=== PATIENT | female | born 1990 | race Caucasian/White ===

== ENCOUNTER 2020-11-23 07:03 | Outpatient (RCR) | payer OTHER ==
[~2020-11-23] VITALS: Ht 170.2 cm; Wt 77.3 kg
[~2020-11-23 07:03] MED LIST: ACHYD1T PO; BIOT1TAB2 PO; DCS100C PO; FOLI0.4T2 PO; IBP800T PO; PREN-115 PO
[2020-11-23] MEDS ORDERED: SERT-413 PO (14:16)
[2020-11-23] MEDS ORDERED: bcp PO (14:16)
[2020-11-23] MEDS ORDERED: MULT-141 PO (14:16)
== END 2020-11-24 10:01 | disposition home or self-care (01) ==
LOC: PREOP 07:03
PROVIDERS: ATTEND Otolaryngology Otolaryngology/Facial Plastic Surgery
DX: Z01.818 Encounter for other preprocedural examination (principal)

== ENCOUNTER 2020-12-01 07:09 | Day surgery (SDC) | payer OTHER ==
[~2020-12-01] VITALS: Ht 170.2 cm; Wt 77.3 kg
[2020-12-01] VITALS (10 sets, daily range): BP systolic 107–121; BP diastolic 63–82
[~2020-12-01 07:09] MED LIST changes: +MULT-141 PO; +SERT-413 PO; +bcp PO
[2020-12-01] MEDS ORDERED: proPOfol 200 MG/20 ML (DIPRIVAN) VIAL IV ONE ×3 (07:43→10:37)
[2020-12-01] MEDS ORDERED: SEVOFLURANE (ULTANE) 15 ML INHAL SOLN ONE ×11 (07:43→11:44)
[2020-12-01] MEDS ORDERED: LIDOCAINE PF 2% 5 ML (XYLOCAINE) VIAL ONE (07:43)
[2020-12-01] MEDS ORDERED: fentaNYL INJECTION 100 MCG/2 ML AMP ONE ×2 (07:44→09:22)
[2020-12-01] MEDS ORDERED: MIDAZOLAM 2 MG/2 ML (VERSED) VIAL ONE (07:44)
[2020-12-01] MEDS: LACTATED RINGERS 1,000 ML IV SCH ×2 (07:45→09:47)
[2020-12-01] MEDS ORDERED: LIDOCAINE/EPI 1%-1:100,000 (XYLOCAINE) 50 ML ONE (07:58)
[2020-12-01] MEDS ORDERED: BSS 15 ML ONE (07:58)
[2020-12-01] MEDS ORDERED: MUPIROCIN 2% OINT 22 GM (BACTROBAN) TUBE ONE (07:58)
--- NOTE | 2020-12-01 08:16 | Progress Note-Pre Operative ---
Pre-Operative Progress Note H&P Reviewed The H&P was reviewed, patient examined and no changes noted. Date Seen by Provider: Dec 01, 2020 Time Seen by Provider: 07:45 Date H&P Reviewed: Dec 01, 2020 Time H&P Reviewed: 07:45 Pre-Operative Diagnosis: Left Parotid Mass RAHEEM SIERRA MD Dec 01, 2020 08:16
[2020-12-01] MEDS ORDERED: LACTATED RINGERS 1,000 ML IV SCH (10:15)
[2020-12-01] MEDS ORDERED: PHENYLEPHRINE 100 MCG/ML 10 ML (ANESTHESIA) SYR ONE (10:37)
[2020-12-01] MEDS ORDERED: GLYCOPYRROLATE 0.2 MG/ML (ROBINUL) 2 ML VIAL ONE (10:37)
--- NOTE | 2020-12-01 11:20 | Progress Note-Post Operative ---
Post-Operative Progess Note Surgeon (s)/Tassel Making Machine Operator (s) Surgeon RAHEEM SIERRA MD Tassel Making Machine Operator n/a Pre-Operative Diagnosis Left Parotid Mass Post-Operative Diagnosis same Post-Op Procedure Note Date of Procedure: Dec 01, 2020 Name of Procedure Performed: Left Parotidectomy with Preservation of FAcial Nerve Description & Findings Description and Findings: n/a Anesthesia Type get Estimated Blood Loss minimal Packing none. 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
[2020-12-01] MEDS ORDERED: D5 1/2 NS W/KCL 20 MEQ/L 1,000 ML IV SCH (11:30)
[2020-12-01] MEDS ORDERED: ACETAMINOPHEN 325 MG TABLET PO PRN (11:30)
[2020-12-01] MEDS ORDERED: morphine INJ 10 MG/ML 1ML (SYR OR VIAL) IVP ONE (12:15)
[2020-12-01] MEDS ORDERED: MEPERIDINE (DEMEROL) INJ 50 MG/ML IVP ONE (12:15)
[2020-12-01] MEDS ORDERED: HYDROmorphone 2 MG/ML VIAL (DILAUDID) IV ONE (12:15)
[2020-12-01] MEDS ORDERED: ONDANSETRON 4 MG/2 ML (SDV) Z0FRAN IVP PRN (12:15)
[2020-12-01] MEDS ORDERED: PROMETHAZINE INJ 25 MG/ML (PHENERGAN) AMP IVP ONE (12:15)
--- NOTE | 2020-12-01 13:59 | Anesthesia-General Post-Op ---
General Patient Condition Mental Status/LOC: Same as Preop Cardiovascular: Satisfactory Nausea/Vomiting: Absent Respiratory: Satisfactory Pain: Controlled Complications: Absent Post Op Complications Complications None Follow Up Care/Instructions Patient Instructions None needed. Anesthesia/Patient Condition Patient Condition Patient is doing well, no complaints, stable vital signs, no apparent adverse anesthesia problems. No complications reported per nursing. MARIA ELENA MUJICA CRNA Dec 01, 2020 13:59
[2020-12-01] MEDS: HYDROcodone/APAP 5 MG/325 MG (LORTAB) TAB PO PRN ×2 (15:43→21:22)
[2020-12-02 00:02] VITALS: BP 108/73
[2020-12-02 05:05] VITALS: BP 128/64
[2020-12-02] MEDS: HYDROcodone/APAP 5 MG/325 MG (LORTAB) TAB PO PRN (05:11)
--- NOTE | 2020-12-02 06:07 | Progress Note ---
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
[2020-12-02 06:38] VITALS: BP 128/64
== END 2020-12-02 06:40 | disposition home or self-care (01) ==
LOC: SDC 07:09 → 4TH 12:03 → SDC 12-02 06:40
PROVIDERS: ATTEND Otolaryngology Otolaryngology/Facial Plastic Surgery
DX: D11.0 Benign neoplasm of parotid gland (principal); F32.9 Major depressive disorder, single episode, unspecified; Z79.899 Other long term (current) drug therapy
CPT/HCPCS: 84703; 87081; 88307; 88331